=== PATIENT | female | born 1990 | race Caucasian/White ===

== ENCOUNTER → 2016-09-03 | Outpatient (CLI) | payer BC | END | disposition home or self-care (01) | LOC: MERGE 13:59 → C.PAPS 13:59 | PROVIDERS: ATTEND Obstetrics & Gynecology | DX: Z01.419 Encounter for gynecological examination (general) (routine) without abnormal findings (principal) ==

== ENCOUNTER 2018-03-09 20:49 | Inpatient (IN) | payer BC ==
[~2018-03-09] VITALS: Ht 165.1 cm; Wt 85.5 kg
[2018-03-09] MEDS ORDERED: LACTATED RINGER'S 1000ML 1,000 ML IV PRN (21:48)
[2018-03-09] MEDS ORDERED: LACTATED RINGER'S 1000ML 500 ML IV PRN (21:50)
[2018-03-09] MEDS ORDERED: OXYTOCIN 30 UNITS/500ML NSS IV PRN (22:00)
[2018-03-09] MEDS: LACTATED RINGER'S 1000ML 1,000 ML IV SCH (22:37)
[2018-03-09 22:38] LABS: HEMATOCRIT 36.6 % (37-47); HEMOGLOBIN 12.2 g/dL (12.0-16.0); MEAN CELL VOLUME 90.6 fL (80-100); MEAN CORPUSCULAR HEMOGLOBIN 30.2 pg (25-34); MEAN CORPUSCULAR HGB CONC 33.3 g/dl (32-36); MEAN PLATELET VOLUME 9.7 fL (7.4-10.4); PLATELET COUNT 151 K/uL (130-400); RED CELL DISTRIBUTION WIDTH CV 13.2 % (11.5-14.5); RED CELL DISTRIBUTION WIDTH SD 43.4 fL (36.4-46.3); WHITE BLOOD COUNT 14.01 K/uL (4.8-10.8)
[2018-03-09] MEDS: PATIENT'S ALLERGY INFO NEEDS ENTERED SCH (22:45)
[2018-03-09 22:50] VITALS: Ht 165.1 cm; Wt 85.5 kg
[2018-03-09] MEDS ORDERED: PRENTAB26 PO (23:01)
[2018-03-09] MEDS ORDERED: PROB1CAP41 (23:02)
[2018-03-09] MEDS ORDERED: PROB1TAB16 (23:02)
[2018-03-10] MEDS ORDERED: BUTORPHANOL TARTRATE 1 MG/ML VIAL IV PRN (00:30)
[2018-03-10] MEDS: PATIENT'S ALLERGY INFO NEEDS ENTERED SCH (01:10)
[2018-03-10] MEDS: LACTATED RINGER'S 1000ML 1,000 ML IV SCH (05:30)
[2018-03-10] MEDS ORDERED: EpHEDrine SULFATE INJ 50 MG/ML AMP ONE (08:38)
[2018-03-10] MEDS ORDERED: FENTANYL CITRATE INJ 50 MCG/1 ML 2 ML VIAL ONE (08:38)
[2018-03-10] MEDS ORDERED: BUPIVACAINE 0.25% 30 ML VIAL ONE (08:38)
[2018-03-10] MEDS ORDERED: FENTANYL 2MCG/ML ROPIV 1.25MG/ML 100ML BAG ONE (08:39)
[2018-03-10] MEDS ORDERED: LACTATED RINGER'S 1000ML 500 ML IV PRN (10:38)
[2018-03-10] MEDS ORDERED: NALOXONE HCL INJ 1 MG in SODIUM CHLORIDE 0.9% 1000ML 1,000 ML IV PRN (10:38)
[2018-03-10] MEDS ORDERED: NALOXONE HCL INJ 0.4 MG/1 ML VIAL/CARP IV PRN (10:45)
[2018-03-10] MEDS ORDERED: FENTANYL 2MCG/ML ROPIV 1.25MG/ML 100ML BAG EPI PRN (10:45)
[2018-03-10] MEDS ORDERED: DiphenhydrAMINE HCL 50 MG/ML VIAL IV PRN (10:45)
[2018-03-10] MEDS ORDERED: NALBUPHINE HCL INJ 10 MG/ML 10ML VIAL IV PRN (10:45)
[2018-03-10] MEDS ORDERED: EpHEDrine SULFATE INJ 50 MG/ML AMP IV PRN (10:45)
[2018-03-10] MEDS ORDERED: LANOLIN OINT EXT PRN (13:15)
[2018-03-10] MEDS ORDERED: OXYTOCIN 30 UNITS/500ML NSS IV PRN (13:15)
[2018-03-10] MEDS ORDERED: BENZOCAINE 20% AER SPR 82.5 GM CAN EXT PRN (13:15)
[2018-03-10] MEDS ORDERED: SUPERCREAM 0.870 % 15GM JAR EXT PRN (13:15)
[2018-03-10] MEDS ORDERED: DIPHTHERIA/TETANUS/PERTUSSIS 0.5 ML SYR/VIAL IM. ONE (13:15)
[2018-03-10] MEDS ORDERED: HYDROCORTISONE ACETATE 25 MG SUPP PR PRN (13:15)
[2018-03-10] MEDS ORDERED: OXYCODONE/ACETAMINOPHEN 5-325 TAB PO PRN (13:15)
--- NOTE | 2018-03-10 13:49 | Anesthesia Procedure Note ---
Anesthesia Epidural Removal Nt Date & Time Mar 10, 2018 at 13:49 Vital Signs Pain Intensity: 3.0 Notes Mental Status: alert / awake / arousable, participated in evaluation Nausea / Vomiting: adequately controlled Pain: adequately controlled Airway Patency, RR, SpO2: stable & adequate BP & HR: stable & adequate Hydration State: stable & adequate Neuraxial Anesthesia: was administered Anesthetic Complications: no major complications apparent, pt satisfied with anesthetic care Epidural: removed without complications, with tip intact
--- NOTE | 2018-03-10 14:09 | DELIVERY SUMMARY ---
DATE OF OPERATION: 03/10/2018 TIME OF DELIVERY: 1246 hours. DELIVERY OF PLACENTA: 1252 hours. DELIVERY NOTE: The patient is a 27-year-old 1 para 0 at 40 weeks and 2 days' gestation, who was admitted to labor and delivery on the evening of 03/09/2018 with spontaneous rupture of membranes that occurred at 2030 hours with clear amniotic fluid noted. On arrival, she was found to be grossly ruptured and was fingertip, thick, and -4. Oxytocin per protocol began. She received an epidural for anesthesia. She reached complete dilation at 10:49 a.m. on 03/10/2018. She pushed to delivery at 1246 hours. She delivered a viable female infant in the right occiput anterior position to an intact perineum. The baby was delivered and placed on the patient's abdomen. Cord was clamped x2 and cut. Apgars were 8 at 1 minute and 9 at 5 minutes. Please see nursing notes for further baby assessment. Cord blood donation was obtained along with cord blood. An intact placenta with 3-vessel cord was delivered at 1252 hours. Oxytocin infusion was then begun. The lower uterine segment and vagina was cleared off any blood clots and debris. Exploration of the perineum noted a first-degree vaginal laceration, which was repaired with 3-0 Vicryl suture in continuous running fashion. No other lacerations were seen. Excellent hemostasis was noted. Estimated blood loss was 350 mL. All sponge, instrument, and needle counts were found to be correct x2. The patient and baby tolerated the delivery well and were in recovery with stable vital signs. I attest to the content of the Intraoperative Record and any orders documented therein. Any exception s are noted below.
[2018-03-10 15:45] VITALS: BP 127/78; PULSE 79; TEMP 36.8
[2018-03-10 19:15] VITALS: BP 115/69; PULSE 71; TEMP 36.9
[2018-03-10] MEDS: DOCUSATE SODIUM 100 MG CAP PO SCH (19:43)
[2018-03-10 23:15] VITALS: BP 120/73; PULSE 53; TEMP 36.5
[2018-03-11] MEDS: IBUPROFEN 600 MG TAB PO PRN ×2 (00:39→07:20)
[2018-03-11 04:25] VITALS: BP 116/73; PULSE 60; TEMP 36.7
[2018-03-11 07:25] VITALS: BP 115/73; PULSE 65; TEMP 36.5
[2018-03-11] MEDS: DOCUSATE SODIUM 100 MG CAP PO SCH ×2 (07:30→20:04)
[2018-03-11] MEDS: PRENATAL VITAMIN TAB PO SCH (07:30)
[2018-03-11] MEDS: FERROUS SULFATE 325 MG TAB PO SCH (07:30)
--- NOTE | 2018-03-11 08:25 | OB/GYN Progress Note ---
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 Patient is seen and examined. She feels well, no complaints. Ambulating without dizziness Voiding without difficulty Tolerating regular diet with out N&V Bleeding is minimal No fever/ chills/ CP/ SOB/ N&V/ Leg pain Breast feeding without problems Date Time Temp Pulse Resp B/P (MAP) Pulse Ox O2 Delivery O2 Flow Rate FiO2 03/11/18 04:25 36.7 60 18 116/73 (87) Room Air 03/10/18 23:15 36.5 53 18 120/73 (89) Room Air 03/10/18 23:15 Room Air 03/10/18 19:15 36.9 71 20 115/69 (84) Room Air 03/10/18 15:45 36.8 79 20 127/78 (94) Room Air 03/10/18 15:45 Room Air Test 03/09/18 22:19 03/10/18 01:24 03/11/18 04:44 White Blood Count 14.01 H Red Blood Count 4.04 L Hemoglobin 12.2 Pending Hematocrit 36.6 L Pending Mean Corpuscular Volume 90.6 Mean Corpuscular Hemoglobin 30.2 Mean Corpuscular Hemoglobin Concent 33.3 RDW Standard Deviation 43.4 RDW Coefficient of Variation 13.2 Platelet Count 151 Mean Platelet Volume 9.7 Amniotic Fluid Protein POS Last 24 Hours Test 03/11/18 04:44 PE: General: Alert, orientedx3, NAD Abd: soft, NT, fundus firm, below Umbilicus Perineum intact, Lochia rubra minimal Ext; NT, no edema AP: 27 yo s/p , ppd# 1 VSS Afebrile doing well Continue routine care All questions were answered
[2018-03-11 08:40] LABS: HEMATOCRIT 33.8 % (37-47); HEMOGLOBIN 11.4 g/dL (12.0-16.0)
--- NOTE | 2018-03-11 09:07 | Discharge Instructions ---
Discharge Instructions Date of Service Mar 11, 2018. Admission Reason for Admission: Check Rupture Discharge Discharge Diagnosis / Problem: Discharge Goals Goal(s): Routine recovery after delivery Medications Continue Dispensed Medications: lansinoh, other Activity Recommendations Activity Limitations: as noted below ACTIVITY RECOMMENDATIONS: * Gradual return to full activity over the next 2-3 weeks. * No lifting - nothing heavier than baby over the next 2-3 weeks. * Do not engage in vigorous exercise, sexual activity or sports until cleared by your physician. * Do not drive or operate any motorized equipment until cleared by your physician. * You may shower/bathe daily. BREAST CARE: If you are not breast feeding: * Wear a supportive bra 24 hours a day for one to two weeks. * Avoid stimulating your breasts and nipples as much as possible during the first few weeks after delivery. * When taking a shower, have the warm water hit your back, not breasts. * When your breasts feel full, apply ice packs. Usually three to four times a day helps ease the discomfort. * Take a mild pain medication (Tylenol/Motrin) when you are uncomfortable. If breast feeding: * Use breast milk to lubricate nipples. Lansinoh cream may be used for sore nipples. You do not need to remove cream prior to breast feeding. If using a different brand of cream, check the label for directions regarding removal of cream prior to nursing. * Wear a supportive bra. * If having problems with breasts or breast feeding, call a client service consultant or your health care provider. EPISIOTOMY CARE: After delivery, if you have an episiotomy (stitches), the following steps will ease discomfort and aid healing. * For the first 24 hours after delivery, place ice packs next to your episiotomy to help reduce swelling. * After the first 24 hour-period, sitz baths, either portable or in the tub, are suggested. A shower with a shower arm sprayed over the episiotomy may be comforting. * Cherri care should be done after each voiding and bowel movement. Squirt warm water from a plastic bottle over the perineum (region of the body between the anus and urinary opening) and pat dry. * Use Dermoplast to ease discomfort. Shake container. Rawlings directly over the episiotomy. * Place a Tucks on a clean sanitary pad next to your episiotomy. OVER THE COUNTER MEDICATION: * For discomfort or pain, you may use Acetaminophen (Tylenol), Ibuprofen (Advil ), or Naproxen (Aleve) following the package directions. * For constipation you may use Colace following the package directions. SPECIAL CARE INSTRUCTIONS: When you are discharged from the hospital, it is important for you to follow the instructions listed below: * During the first week at home, you should be able to care for yourself and your baby. In addition, the usual light household activities are encouraged. * Limit your activities to the way you feel. Do not try to clean the house or move furniture. Be sensible. * If you actively engage in sports and have done so up until the time of your delivery, you may resume these activities as soon as you feel able. This may take up to one month or even longer. Use good judgment. * Continue to take your vitamins for at least six weeks after the of your baby. * Your diet need not be limited unless you were on a special diet before your delivery. Breast-feeding mothers need around 2500 calories per day and at least 64-80 ounces of fluid per day (8 to 10 glasses). * You should eat foods from the four major food groups. Crash diets or fad diets are to be avoided. Eating lean meats, fresh fruits and vegetables, low-fat dairy products, high fiber foods and a regular exercise program, will help you get back to your pre- weight without putting your health at risk. * Constipation is sometimes a problem after delivery. Take a mild laxative as needed. If breast feeding, Milk of Magnesia is acceptable to use. You may use a suppository or Fleets enema if no episiotomy. * A daily shower or tub bath is suggested. Be sure to thoroughly and gently dry the perineum. * A bloody vaginal discharge will usually continue until around four weeks post . A small amount of bleeding may continue for as long as six weeks. Vaginal discharge changes from the bright red bleeding after delivery to pink then brownish and finally yellowish-pink before becoming white and disappearing. * Bleeding may increase with activity. Your first period may come in 4-8 weeks. If you are breast feeding, your period may be delayed even longer. * Navarro (sex) can begin whenever both you and your partner feel comfortable and do not have any form of genital infection. It is recommended that you wait until after your return appointment and discuss with your physician. If you have questions, please talk to your health care practitioner. A condom should be used to prevent infection and . * Foreplay, gentle intercourse and lubrication is very important the first several times to prevent pain. A water-based lubricant such as K-Y jelly or Astroglide may be used. * Tampons may be used six weeks after delivery. * Douching should be avoided for 6 weeks after delivery. * If you have RH negative blood and your baby is RH positive, you will receive RHOGAM by injection prior to discharge. The nurse will give you a card to keep with you that has the date and place that you received RHOGAM after delivery. * During your care, you had a Rubella screen done to check for the presence of rubella antibodies in your blood. If your test was negative, you will receive a Rubella vaccine prior to discharge. This vaccine may cause a fever, soreness at the injection site and flu-like symptoms. If these symptoms persist, notify your health care practitioner. is not advised for three months after a Rubella vaccine. There is a higher chance of having a baby with defects if conceived within three months of getting the vaccine. * If you were discharged 24 hours from delivery or before 48 hours: Visiting nurses will come to your home 48 hours after discharge to assess you and your baby. The visiting nurse will meet with you while you are in the hospital to arrange a time and get directions to your home. * Verbalizes understanding of car seat law as reviewed with patient nursing. * Car Seat hand-out given and reviewed with patient by nursing. * Shaken baby information reviewed with patient by nursing. Call you doctor if: * Heavy bleeding (saturating several pads an hour) or passing clots the size of your fist. * A fever >101 degrees F (38.3 degrees C) on two occasions four hours apart and/or chills. * Unusual pain in the pelvic or vaginal areas. * "Baby Blues" lasting longer than two weeks. If you have any questions or concerns, call your health care practitioner at . FOLLOW-UP VISIT: * Please call the office at to schedule a 6 week examination. It is important you keep this appointment. * It is important for you to make arrangements for either yearly or twice yearly check-ups thereafter. . Current Hospital Diet Patient's current hospital diet: Regular OB Diet Discharge Diet Recommended Diet: Regular Diet Pending Studies Studies pending at discharge: no Medical Emergencies . Who to Call and When: Medical Emergencies: If at any time you feel your situation is an emergency, please call 911 immediately. . Non-Emergent Contact Non-Emergency issues call your: Supervisor Alteration Workroom, Surgeon Call Non-Emergent contact if: you have a fever, temperature is above 100.5, your pain is not controlled, your pain is worsening . . "Provider Documentation" section prepared by Carolina Choi. .
[2018-03-11 09:10] LABS: INR 0.9 (0.9-1.1)
[2018-03-11] MEDS: ENOXAPARIN 40 MG/0.4 ML SYR SQ SCH (09:21)
[2018-03-11 11:55] VITALS: BP 130/79; PULSE 73; TEMP 36.5
[2018-03-11] MEDS: ACETAMINOPHEN 325 MG TAB PO PRN (12:03)
[2018-03-11 15:20] VITALS: BP 115/74; PULSE 70; TEMP 36.4
[2018-03-11] MEDS ORDERED: BISACODYL 5 MG TABEC PO SCH (20:00)
[2018-03-11 20:50] VITALS: BP 138/78; PULSE 70; TEMP 36.9
[2018-03-12] MEDS: ACETAMINOPHEN 325 MG TAB PO PRN ×2 (00:13→08:04)
[2018-03-12 00:15] VITALS: BP 131/82; PULSE 60; TEMP 36.8
[2018-03-12 04:30] VITALS: BP 113/69; PULSE 55; TEMP 36.6
[2018-03-12] MEDS ORDERED: BISACODYL 10 MG SUPP PR PRN (07:00)
[2018-03-12 07:04] LABS: HEMOGLOBIN 11.7 g/dL (12.0-16.0); MEAN CELL VOLUME 93.8 fL (80-100); MEAN CORPUSCULAR HEMOGLOBIN 31.4 pg (25-34); MEAN CORPUSCULAR HGB CONC 33.4 g/dl (32-36); MEAN PLATELET VOLUME 10.2 fL (7.4-10.4); PLATELET COUNT 139 K/uL (130-400); RED CELL DISTRIBUTION WIDTH CV 13.8 % (11.5-14.5); WHITE BLOOD COUNT 11.41 K/uL (4.8-10.8)
[2018-03-12 08:00] VITALS: BP 128/79; PULSE 64; TEMP 36.8
[2018-03-12] MEDS: FERROUS SULFATE 325 MG TAB PO SCH (08:04)
[2018-03-12] MEDS: DOCUSATE SODIUM 100 MG CAP PO SCH (08:04)
[2018-03-12] MEDS: PRENATAL VITAMIN TAB PO SCH (08:04)
[2018-03-12] MEDS ORDERED: NURSING VERBAL MED ORDER ONE (08:30)
[2018-03-12] MEDS: ENOXAPARIN 40 MG/0.4 ML SYR SQ SCH (08:40)
[2018-03-12] MEDS ORDERED: LOVENOX TEACHING KIT SCH (09:00)
--- NOTE | 2018-03-12 09:33 | OB/GYN Progress Note ---
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 Patient is seen and examined. She feels well, no complaints. Likes to go home. Ambulating without dizziness Voiding without difficulty Tolerating regular diet with out N&V Bleeding is minimal No fever/ chills/ CP/ SOB/ N&V/ Leg pain Breast feeding without problems Date Time Temp Pulse Resp B/P (MAP) Pulse Ox O2 Delivery O2 Flow Rate FiO2 03/12/18 04:30 Room Air 03/12/18 04:30 36.6 55 18 113/69 (84) Room Air 03/12/18 00:15 36.8 60 20 131/82 (98) Room Air 03/12/18 00:15 Room Air 03/11/18 20:50 36.9 70 18 138/78 (98) Room Air 03/11/18 20:50 Room Air 03/11/18 15:20 Room Air 03/11/18 15:20 36.4 70 16 115/74 (88) Room Air 03/11/18 11:55 36.5 73 16 130/79 (96) Room Air Last 24 Hours Test 03/12/18 05:56 White Blood Count 11.41 K/uL Red Blood Count 3.73 M/uL Hemoglobin 11.7 g/dL Hematocrit 35.0 % Mean Corpuscular Volume 93.8 fL Mean Corpuscular Hemoglobin 31.4 pg Mean Corpuscular Hemoglobin Concent 33.4 g/dl RDW Standard Deviation 47.0 fL RDW Coefficient of Variation 13.8 % Platelet Count 139 K/uL Mean Platelet Volume 10.2 fL PE: General: Alert, orientedx3, NAD Abd: soft, NT, fundus firm, below Umbilicus Perineum intact, Lochia rubra minimal Ext; NT, no edema AP: 27 yo s/p , ppd# 2 VSS Afebrile doing well On Lovenox for DVT prophylaxis Teaching kit provided Discussed when to call All questions were answered D/C home , f/u in office
[2018-03-12] MEDS ORDERED: LVNIS40 SQ (09:34)
[2018-03-12 10:30] VITALS: BP_DIAS 79; PULSE 64; TEMP 36.8
== END 2018-03-12 11:00 | disposition home or self-care (01) | DRG 775 ==
LOC: C.LD 20:49 → C.OPB 20:49 → C.LD 21:50 → C.OPB 21:50 → C.OBG 03-10 16:02
PROVIDERS: ADMIT Obstetrics & Gynecology; ATTEND Obstetrics & Gynecology
PROC: 10E0XZZ Delivery of Products of Conception, External Approach (ICD-10-PCS; principal; 2018-03-10)
PROC: 0HQ9XZZ Repair Perineum Skin, External Approach (ICD-10-PCS; principal; 2018-03-10)
DX: O42.02 Full-term premature rupture of membranes, onset of labor within 24 hours of rupture (principal); O99.12 Other diseases of the blood and blood-forming organs and certain disorders involving the immune mechanism complicating childbirth; D68.51 Activated protein C resistance; O70.0 First degree perineal laceration during delivery; Z51.81 Encounter for therapeutic drug level monitoring; Z3A.40 40 weeks gestation of pregnancy; Z37.0 Single live birth

== ENCOUNTER 2021-02-19 00:54 | Inpatient (IN) ==
[2021-02-19] MEDS ORDERED: OXYTOCIN 30 UNITS/500 ML BAG IV PRN ×2 (01:07→01:58)
[2021-02-19] MEDS ORDERED: LACTATED RINGER'S 1,000 ML IV PRN (01:07)
[2021-02-19] MEDS: OXYTOCIN 30 UNITS/500ML NSS ONE ×2 (01:39→02:05)
--- NOTE | 2021-02-19 01:54 | Delivery Summary ---
Vaginal Delivery Summary Date of Service February 19, 2021 Vaginal Delivery Summary Delivery Note 30 F P1001 at 40 weeks presents to L&D in active delivery with no problems. Her water broke shortly before arrival and had a precipitous delivery of a live female CLAUDE with delayed cord clamping, Apgars 8/9 weight pending. Cord blood obtained followed by spontaneous delivery of intact placenta. No tears. EBL 100 ml. Final sponge and instrument count are correct. Mom and baby stable.
[2021-02-19] MEDS ORDERED: IBUPROFEN 600 MG TAB PO PRN (01:58)
[2021-02-19] MEDS ORDERED: SUPERCREAM 0.870% 15 GM JAR EXT PRN (01:58)
[2021-02-19] MEDS ORDERED: DIPHTHERIA/TETANUS/PERTUSSIS 0.5 ML SYR/VIAL IM ONE (01:58)
[2021-02-19] MEDS ORDERED: HYDROCORTISONE ACETATE 25 MG SUPP PR PRN (01:58)
[2021-02-19] MEDS ORDERED: BENZOCAINE 20% AER SPR 82.5 GM CAN EXT PRN (01:58)
[2021-02-19 02:29] LABS: Hematocrit (blood only) 40.2 % (37-47); Hemoglobin 13.5 g/dL (12.0-16.0); Mean Corpuscular Hemoglobin 31.6 pg (25-34); Mean Corpuscular Volume 94.1 fL (80-100); Mean Platelet Volume 10.2 fL (7.4-10.4); Platelet Count 135 K/uL (130-400); RDW Coefficient of Variation 13.5 % (11.5-14.5); RDW Standard Deviation 46.6 fL (36.4-46.3); Red Blood Count 4.27 M/uL (4.2-5.4); White Blood Count 15.53 K/uL (4.8-10.8)
[2021-02-19 02:37] LABS: Mean Corpuscular Hgb Conc 33.6 g/dL (32-36)
[2021-02-19] MEDS: ACETAMINOPHEN 325 MG TAB PO PRN ×3 (03:57→16:18)
[2021-02-19] MEDS: DOCUSATE SODIUM 100 MG CAP PO SCH ×2 (07:42→20:42)
[2021-02-19] MEDS: PRENATAL VITAMIN 1 TAB PO SCH (07:42)
[2021-02-19] MEDS ORDERED: NON-FORMULARY MEDICATION (Multivit/Min/Iron/Fol Ac/Pren (Prenatal Vitamin) tablet) PO SCH (09:00)
[2021-02-19] MEDS ORDERED: ENOXAPARIN INJ 40 MG/0.4 ML SYR SQ ONE (09:00)
[2021-02-20] MEDS: ACETAMINOPHEN 325 MG TAB PO PRN ×2 (00:39→07:15)
[2021-02-20 07:06] LABS: Hematocrit (blood only) 37.3 % (37-47); Hemoglobin 12.2 g/dL (12.0-16.0); Mean Corpuscular Hgb Conc 32.7 g/dL (32-36); Mean Corpuscular Volume 94.7 fL (80-100); Mean Platelet Volume 9.8 fL (7.4-10.4); Platelet Count 129 K/uL (130-400); RDW Coefficient of Variation 13.8 % (11.5-14.5); Red Blood Count 3.94 M/uL (4.2-5.4); White Blood Count 11.67 K/uL (4.8-10.8)
[2021-02-20] MEDS: DOCUSATE SODIUM 100 MG CAP PO SCH (07:15)
[2021-02-20] MEDS: PRENATAL VITAMIN 1 TAB PO SCH (07:15)
[2021-02-20 07:44] LABS: Creatinine Clr Calc Pharmacy 173.3 ml/min; Est GFR (African American) 148.5 ml/min; Est GFR (Non-African American) 128.1 ml/min
[2021-02-20] MEDS ORDERED: ENOXAPARIN INJ 40 MG/0.4 ML SYR SQ SCH (09:00)
--- NOTE | 2021-02-20 10:23 | Progress Note ---
Date of Service February 20, 2021 Assessment & Plan Admission and Anticipated Discharge Date Admission Date: February 19, 2021 Subjective PPD#1 doing well passing gas tolerating diet Physical Exam Constitutional: WD/WN, vitals as above well developed and comfortable Genitourinary: no edema neg [facility] for d/c home Results & Data ([facility]) Vital Signs (Past 12 Hours) Vital Signs Temp Pulse Resp BP Pulse Ox 02/20/21 07:25 36.6 C 63 16 123/74 99 02/20/21 00:35 36.8 C 69 17 113/70 98 Laboratory Results Laboratory Results - last 72 hr 02/19/21 02/19/21 02/19/21 02:04 02:45 02:45 WBC 15.53 H RBC 4.27 Hgb 13.5 Hct 40.2 MCV 94.1 MCH 31.6 MCHC 33.6 RDW Std Deviation 46.6 H RDW Coeff of Sophie 13.5 Plt Count 135 MPV 10.2 Creatinine Est Cr Clr Drug Dosing Est GFR ( Amer) Est GFR (Non-Af Amer) COVID-19 Eval Order Covid19 IDNow [facility] SARS-CoV-2, RNA, NAAT NEGATIVE 02/20/21 02/20/21 06:43 06:43 WBC 11.67 H RBC 3.94 L Hgb 12.2 Hct 37.3 MCV 94.7 MCH 31.0 MCHC 32.7 RDW Std Deviation 48.0 H RDW Coeff of Sophie 13.8 Plt Count 129 L MPV 9.8 Creatinine 0.51 L Est Cr Clr Drug Dosing 173.3 Est GFR ( Amer) 148.5 Est GFR (Non-Af Amer) 128.1 COVID-19 Eval Order SARS-CoV-2, RNA, NAAT
[2021-02-20] MEDS ORDERED: bisacodyL 5 MG TABEC PO SCH (20:00)
[2021-02-21] MEDS ORDERED: bisacodyL 10 MG SUPP PR PRN (06:00)
== END 2021-02-20 11:00 | disposition home or self-care (01) | DRG 807 ==
LOC: OPB 00:54 → 4S1 00:54 → 4S2 04:15